=== PATIENT | female | born 1955 | race Hispanic/Latino ===

== ENCOUNTER 2022-07-04 08:56 | Day surgery (SDC) | payer OTHER ==
[2022-07-04] VITALS (7 sets, daily range): BP systolic 102–128; BP diastolic 61–69
[~2022-07-04] VITALS: Ht 152.4 cm; Wt 77.1 kg
[~2022-07-04 08:56] MED LIST: ATOR20TA65 PO; EMPA25TA PO; LORA10CA PO; METF-444 PO; METO25TA6 PO; OMEP1CAP2 PO; TIRZ5PEN SQ; VITAMIN D3 PO
[2022-07-04] MEDS ORDERED: EMPA10TA PO (10:49)
[2022-07-04] MEDS ORDERED: PROPOFOL 10 MG/ML 20ML VIAL IV ONE ×2 (11:05)
[2022-07-04] MEDS ORDERED: 0.9%NACL 1000ML 1,000 ML IV ONE (11:14)
[2022-07-04] MEDS ORDERED: SUCCINYLCHOLINE CHLORIDE 20 MG/ML 10 ML VIAL ONE (11:34)
== END 2022-07-04 12:45 | disposition home or self-care (01) ==
LOC: DAH 08:56 → ENDO 08:56 → EDSTATUS 12:19 → ENDO 12:45
PROVIDERS: ATTEND Internal Medicine
DX: Z12.11 Encounter for screening for malignant neoplasm of colon (principal); Z20.822 Contact with and (suspected) exposure to COVID-19; K21.9 Gastro-esophageal reflux disease without esophagitis; K57.30 Diverticulosis of large intestine without perforation or abscess without bleeding; K44.9 Diaphragmatic hernia without obstruction or gangrene; K31.89 Other diseases of stomach and duodenum; K59.04 Chronic idiopathic constipation; I10 Essential (primary) hypertension; E11.9 Type 2 diabetes mellitus without complications; E78.00 Pure hypercholesterolemia, unspecified; Z80.0 Family history of malignant neoplasm of digestive organs; Z79.01 Long term (current) use of anticoagulants; Z79.899 Other long term (current) drug therapy; Z90.710 Acquired absence of both cervix and uterus; Z79.84 Long term (current) use of oral hypoglycemic drugs; Z98.51 Tubal ligation status; Z98.890 Other specified postprocedural states
CPT/HCPCS: 87426; 82948 ×2; 43239; 45378; J0330; J7030 ×2; J2704; A4620; A4215 ×2; A4223; A7002; A4222; A4221; A4663; A4606